=== PATIENT | female | born 1990 | race Caucasian/White ===

== ENCOUNTER 2022-01-22 12:51 | Emergency (ER) | payer OTHER ==
[~2022-01-22] VITALS: Ht 165.1 cm; Wt 60.3 kg
[2022-01-22 13:04] VITALS: BP 114/68
[2022-01-22] MEDS ORDERED: ACETAMINOPHEN ES 500 MG TABLET ONE (13:54)
[2022-01-22] MEDS: ACETAMINOPHEN ES 500 MG TABLET PO ONE (14:00)
--- NOTE | 2022-01-22 14:00 | NUR ---
PT RETURNED FROM RADIOLOGY
--- NOTE | 2022-01-22 14:01 | NUR ---
TYLENOL ES GIVEN INDICATED. TAKEN WELL
--- NOTE | 2022-01-22 17:13 | NUR ---
Patient discharged to home in stable condition. Written and verbal after care instructions given. Patient verbalizes understanding of instruction.
== END 2022-01-22 17:14 | disposition home or self-care (01) ==
LOC: ER 13:11
DX: S09.90XA Unspecified injury of head, initial encounter (principal); W22.8XXA Striking against or struck by other objects, initial encounter; Y93.89 Activity, other specified; Y92.89 Other specified places as the place of occurrence of the external cause; Y99.0 Civilian activity done for income or pay
CPT/HCPCS: 70450-TC